=== PATIENT | female | born 2000 | race Caucasian/White ===

== ENCOUNTER 2019-02-28 17:57 | Emergency (ER) | payer SELFPAY ==
[2019-02-28 18:03] VITALS: BP 127/86
--- NOTE | 2019-02-28 18:05 | EDPHY ---
HPI/HX/ROS/PE/MDM Narrative: CHIEF COMPLAINT: Racing heart, chest discomfort. HPI: This patient is a generally healthy 18 year old female. She arrives today with her roommate following an episode of chest pain and racing heart. She states she thinks she may have had a panic attack for the first time. 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 She was preparing for a stressful rehearsal, and has also had stomach issues lately that have made her feel quite anxious. While playing, the muscles around her left ribcage began to cramp, and she had pain with deep inspiration which affected her playing. She then developed a sensation of racing heat, palpitations. She currently feels better. No chest pain, shortness of breath, vomiting, diarrhea, or other associated symptoms. She denies recent illness or trauma. The patient notes she switched to a vegan diet recently and since then she has had intermittent episodes of nausea and a burning sensation in her epigastric region. This discomfort has prevented her from sleeping lately. Her last menstrual period was in December. She denies any chance of . REVIEW OF SYSTEMS: A comprehensive 10 system review of systems is otherwise negative aside from elements mentioned in the history of present illness and medical decision making. PMH: Denies SOCIAL HISTORY: Roommate at bedside. Music major at [employer]. Does not abuse tobacco, drugs, or alcohol. PHYSICAL EXAM: General:Patient is alert, in no acute distress. ENT:Eyes are normal to inspection. ENT inspection normal. Neck: Normal inspection. Full range of motion. Respiratory:No respiratory distress. Breath sounds normal bilaterally. Cardiovascular: Regular rate and rhythm. Strong peripheral pulses. Normal cap refill. Abdomen:The abdomen is nontender to palpation. There are no peritoneal signs. There are normal bowel sounds. Back: Normal to inspection. No tenderness to palpation. Skin: Normal color. No rash. Warm and dry. Extremities: Normal appearance. Full range of motion. Neuro: Oriented x3. Normal motor function. Normal sensory function. ED Course: 18 y/o female presents following an episode of chest discomfort and racing heart rate. Currently her symptoms have largely resolves. She states she thinks she may have had a panic attack. She is currently well appearing, exam unremarkable. We discussed possible workup including EKG, blood work. The patient wishes to proceed with EKG but declines IV at this time. EKG was ordered and interpreted by myself. Please see [facility] system for official reading. Negative for ischemia. Reviewed EKG with the patient. She continues to feel well. Plan to discharge home in good condition. Follow up and return precautions discussed. The patient is comfortable with this plan. MDM: This is a young healthy female with no PE risk factors who presents with sudden onset of pain in her abdomen while practicing the flu. This seems to led to a panic attack like situation. All the symptoms have not resolved. Her EKG is unremarkable-there are no signs of ischemia or arrhythmia. I considered PE, but given lack of risk factors in complete resolution of symptoms, I think this is very unlikely. I did offer the patient additional testing here including lab work and possibly CT scan, but she is comfortable with declining these and following up with her primary care physician. General Time Seen by Provider: 02/28/19 18:04 Initial Vital Signs: Initial Vital Signs Temperature (C) 36.7 C 02/28/19 18:00 Heart Rate 75 02/28/19 18:00 Respiratory Rate 18 02/28/19 18:00 Blood Pressure 127/86 H 02/28/19 18:00 O2 Sat (%) 97 02/28/19 18:00 O2 Delivery Mode Room Air Allergies/Adverse Reactions: No Known Allergies Allergy (Unverified 02/28/19 18:00) Home Medications: Medication Instructions Recorded Omeprazole 02/28/19 Departure - Departure Disposition: Home, Routine, Self-Care Clinical Impression: Anxiety Condition: Good Instructions: Stress (ED), Panic Attack (ED) Additional Instructions: Follow up with your primary care provider in 2-3 days. You may wish to discuss your abdominal discomfort with your primary care provider as well. Be sure to eat well and stay well hydrated. Return to the emergency department for fever, chest pain, difficulty breathing, severe abdominal pain, or other worsening of condition. Referrals: LAILA Perkins,. [Clinic] - As per Instructions Report Scribed for: Husam Martinez Report Scribed by: Diane Hanna Date of Report: 02/28/19 Time of Report: 18:26 Physician Review and Approval Statement: Portions of this note were transcribed by an ED scribe. I personally performed the history, physical exam, and medical decision making; and confirm the accuracy of the information in the transcribed note.
--- NOTE | 2019-02-28 22:48 | CPEKG ---
Test Reason : OPEN Blood Pressure : / mmHG Vent. Rate : 074 BPM Atrial Rate : 073 BPM P-R Int : 178 ms QRS Dur : 091 ms QT Int : 391 ms P-R-T Axes : -55 112 046 degrees QTc Int : 434 ms Ectopic atrial rhythm Left posterior fascicular block Confirmed by Husam Martinez ([id number]) on 02/28/2019 10:48:25 PM Referred By: Husam Martinez Confirmed By:Husam Martinez
== END 2019-02-28 18:51 | disposition home or self-care (01) ==
DX: F41.9 Anxiety disorder, unspecified (principal); R07.9 Chest pain, unspecified